=== PATIENT | male | born 1960 | race Caucasian/White ===

== ENCOUNTER 2018-03-20 11:12 | Emergency (ER) | payer OTHER ==
[~2018-03-20] VITALS: Ht 172.7 cm; Wt 69.4 kg
[2018-03-20 11:27] VITALS: Ht 172.7 cm; Wt 69.4 kg
[2018-03-20 14:02] VITALS: BP 134/67
== END 2018-03-20 14:02 | disposition home or self-care (01) ==
LOC: ED 11:12
DX: S40.011A Contusion of right shoulder, initial encounter (principal); Z88.0 Allergy status to penicillin; W22.8XXA Striking against or struck by other objects, initial encounter; Y93.89 Activity, other specified; Y92.89 Other specified places as the place of occurrence of the external cause; Y99.8 Other external cause status

== ENCOUNTER 2019-01-10 02:29 | Emergency (ER) | payer SELFPAY ==
[~2019-01-10] VITALS: Ht 172.7 cm; Wt 70.3 kg
[2019-01-10 02:35] VITALS: Ht 172.7 cm; Wt 70.3 kg
[2019-01-10 06:08] VITALS: BP 110/80
== END 2019-01-10 06:08 | disposition home or self-care (01) ==
LOC: ED 02:29
DX: T78.3XXA Angioneurotic edema, initial encounter (principal); T78.1XXA Other adverse food reactions, not elsewhere classified, initial encounter; Z88.0 Allergy status to penicillin; X58.XXXA Exposure to other specified factors, initial encounter
CPT/HCPCS: J0171; J1200; J2930; J3490